=== PATIENT | female | born 1935 | race Caucasian/White ===

== ENCOUNTER → 2016-11-10 | Outpatient (CLI) | payer MEDICARE ==
--- NOTE | 2016-11-11 07:49 | PCVCIMAG ---
APPROVED REPORT Study performed: 11/10/2016 13:44:59 EXAM: Comprehensive 2D, Doppler, and color-flow Echocardiogram Patient Location: Echo lab Status: routine Other Information Study Quality: Adequate Indications Hypertension/HDD 2D Dimensions LVEF(%): 58.86 (>50%) IVSd: 11.89 (7-11mm)LVOT Diam: 19.59 (18-24mm) LVDd: 30.27 mm PWd: 10.27 (7-11mm)Ascending Ao: 29.68 (22-36mm) LVDs: 21.18 (25-40mm) Left Atrium: 28.69 (27-40mm) Aortic Root: 28.60 mm LV Single Plane 4CH: 56.74 % Menjivar's LVEF: 58.86 % Volumes Left Atrial Volume (Systole) Single Plane 4CH: 32.29 mLSingle Plane 2CH: 18.21 mL LA ESV Index: 14.00 mL/m2 Aortic Valve AoV Peak Valente.: 1.49 m/s AO Peak Gr.: 8.82 mmHgLVOT Max P.47 mmHg LVOT Max V: 1.27 m/s ZAIRE Vmax: 2.58 cm2 Mitral Valve E/A Ratio: 0.7 MV Decel. Time: 219.43 ms MV E Max Valente.: 0.74 m/s MV A Valente.: 1.08 m/s IVRT: 131.49 ms TDI E/Lateral E': 0.11E/Medial E': 0.11 E': 7.00Medial E' Valente.: 7.00 m/s Lateral E' Valente.: 7.00 m/s Pulmonary Valve PV Peak Gr.: 3.53 mmHg Pulmonary Vein P Vein S: 0.67 m/sP Vein A: 0.44 m/s P Vein D: 0.41 m/sP Vein A Dur.: 69.2 msec P Vein S/D Ratio: 1.63 Tricuspid Valve TR Peak Valente.: 2.68 m/s TR Peak Gr.: 28.81 mmHg Left Ventricle The left ventricle is normal size. There is normal LV segmental wall motion. There is normal left ventricular wall thickness. Left ventricular systolic function is normal. The left ventricular ejection fraction is within the normal range. LVEF is 60-65%. Grade I diastolic dysfunction Right Ventricle The right ventricle is normal size. The right ventricular systolic function is normal. Atria The left atrium size is normal. The right atrium size is normal. Aortic Valve The aortic valve is mildly sclerotic No aortic regurgitation is present. There is no aortic valvular stenosis. Mitral Valve The mitral valve is normal in structure. Trace mitral regurgitation. No evidence of mitral valve stenosis. Tricuspid Valve The tricuspid valve is normal in structure. Trace tricuspid regurgitation with a pulmonary artery pressure of 36mmhg. Pulmonic Valve The pulmonary valve is normal in structure. There is no pulmonic valvular regurgitation. Great Vessels The aortic root is normal in size. IVC is normal in size and collapses with >50% inspiration Pericardium There is no pericardial effusion. <Conclusion> Left ventricular systolic function is normal. There is normal LV segmental wall motion. LVEF is 60-65%. Grade I diastolic dysfunction The aortic valve is mildly sclerotic. No aortic regurgitation or stenosis The mitral valve is normal in structure. Trace mitral regurgitation. Pulmonary artery pressure of 30mmHg There is no pericardial effusion.
== END | disposition home or self-care (01) ==
LOC: PCVCIMAG 13:38
PROVIDERS: ATTEND Internal Medicine
DX: I11.9 Hypertensive heart disease without heart failure (principal); I08.1 Rheumatic disorders of both mitral and tricuspid valves
CPT/HCPCS: 93306